=== PATIENT | female | born 1995 | race Caucasian/White ===

== ENCOUNTER 2017-09-30 10:09 | Emergency (ER) | payer BC ==
[2017-09-30] MEDS ORDERED: Ondansetron INJ* 2 MG/ML VIAL IV ONE (11:01)
[2017-09-30] MEDS ORDERED: NS 0.9% 1000 ML* 1,000 ML IV ONE (11:01)
[2017-09-30] MEDS ORDERED: Ketorolac INJ* 30 MG/ML 1 ML VIAL IV PUSH ONE (11:03)
--- NOTE | 2017-09-30 11:41 | ED ---
Headache - HPI Summary HPI Summary: Patient here with headache 1 week. Started as a posterior headache and has been lingering. She has not taken anything for this headache and here today as headache has moved to the top of her head. She also reports developing some dizziness yesterday and went to [facility]. She was diagnosed with vertigo and no treatment. She admits that she was driving to [place] both Monday and returning Monday prior to symptoms starting. On this drive she was going up and down hills with elevation change and noticed that her ears popping from time to time. She denies otalgia, otorrhea and admits her dizziness is "when I look around abruptly, I feel off and a little dizzy". She admits the dizziness was also triggered when lying in bed and rolling from side to side however she was able to settle into a comfortable position. Her headache kept her awake last night. She has associated symptoms of mild photophobia and had a one-time episode of nausea with vomiting last night. Denies fevers, chills, sinus pain or pressure, sore throat, rhinorrhea, sneezing, coughing, chest pain, shortness of breath, abdominal pain, diarrhea, dysuria, urinary frequency, vaginal discharge, skin changes. No recent head or neck injuries. H/o concussion 2 years ago - no residual effects. She came in today for concern of meningitis however admits she's had her meningococcal vaccine and no one has been sick intermediate quarters as she is an RN at [employer]. She admits she's been stressed and studying alot for exams - thinks she's been drinking plenty of water and not too much caffeine. No h/o migraine. Her last menstrual period was one month ago and she denies sexual activity ever. Medical history is significant for anxiety for which she treats with Celexa daily and Xanax as needed; Zyrtec for seasonal allergies, worse in the spring; daily "low dose" antibiotic and VPzel for acne. H/o vasovagal reaction when requiring medical attention specifically with shots and lab draws. She is quite anxious about having any of these procedures done today. Also admits she is just anxious about being here in general. - History Of Current Complaint Chief Complaint: EDGeneral Stated Complaint: POSSIBLE MENENGITIS Time Seen by Provider: 09/30/17 10:27 Hx Obtained From: Patient, Family/Photography Manager - mom via phone - Allergies/Home Medications Allergies/Adverse Reactions: Allergies Allergy/AdvReac Type Severity Reaction Status Date / Time amoxicillin Allergy Severe Hives Verified 09/30/17 10:16 Penicillins Allergy Severe Hives Verified 09/30/17 10:16 PMH/Surg Hx/FS Hx/Imm Hx Previously Healthy: Yes Endocrine/Hematology History: Denies: Hx Anticoagulant Therapy, Hx Blood Disorders, Hx Diabetes, Hx Thyroid Disease, Hx Anemia, Hx Unexplained Bleeding, Autoimmune Disease Cardiovascular History: Denies: Hx Aneurysm, Hx Congenital Heart Disease, Hx Hypertension, Hx Valvular Heart Disease EENT History: Reports: Hx Seasonal Allergies Denies: Hx Deafness, Hx Hearing Problem Psychiatric History: Reports: Hx Anxiety - celexa, xanax - strong fear of medical facilities and procedures - Immunization History Immunizations Up to Date: Yes Infectious Disease History: No Infectious Disease History: Denies: Traveled Outside the [place] in Last 30 Days - Social History Occupation: Student 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 Negative: Blurred Vision, Diplopia, Drainage, Erythema ENT: Negative Negative: Epistaxis, Dental Pain, Sore Throat, Ear Ache, Nasal Discharge Cardiovascular: Negative Negative: Palpitations, Chest Pain Respiratory: Negative Negative: Shortness Of Breath, Cough Positive: Nausea. Negative: Abdominal Pain, Vomiting, Diarrhea Genitourinary: Negative Negative: burning, dysuria, discharge, frequency, flank pain, hematuria, incontinence, pain, urgency Musculoskeletal: Other - neck/shoulders muscles are tense Skin: Negative Positive: Headache. Negative: Weakness, Paresthesia, Numbness, Syncope, Slurred Speech Positive: Anxious All Other Systems Reviewed And Are Negative: Yes Physical Exam Triage Information Reviewed: Yes Vital Signs On Initial Exam: Initial Vitals Temp Pulse Resp BP Pulse Ox 98.8 F 93 16 131/81 100 09/30/17 10:11 09/30/17 10:11 09/30/17 10:11 09/30/17 10:11 09/30/17 10:11 Vital Signs Reviewed: Yes Appearance: Positive: Well-Appearing - tearful and anxious, No Pain Distress, Obese Skin: Positive: Warm, Skin Color Reflects Adequate Perfusion, Dry - no lesions, no erythema over effected areas Head/Face: Positive: Normal Head/Face Inspection. Negative: TMJ Tenderness Eyes: Positive: Normal, EOMI, ANGELA - no photophobia w/ light exam, Conjunctiva Clear. Negative: Conjunctiva Inflammed, Discharge ENT: Positive: Normal ENT inspection, Hearing grossly normal, Pharynx normal, Nasal drainage - clear- from crying, TMs normal, Sinus tenderness - frontal. Negative: TM bulging, TM dull, TM red, Tonsillar swelling, Tonsillar exudate, Trismus, Muffled voice Dental: Negative: Gross Decay/Caries @ Neck: Positive: Supple, Nontender, No Lymphadenopathy Respiratory/Lung Sounds: Positive: Clear to Auscultation, Breath Sounds Present. Negative: Rales, Rhonchi, Wheezes Cardiovascular: Positive: Normal, RRR, Pulses are Symmetrical in both Upper and Lower Extremities, S1, S2. Negative: Murmur, Rub, Leg Edema Left, Leg Edema Right Abdomen Description: Positive: Nontender, No Organomegaly, Soft Bowel Sounds: Positive: Present Musculoskeletal: Positive: Strength/ROM Intact, Pain @ - trapezius mm, rotator cuff mm and rhomboids are TTP,palpation triggers BRYSON Neurological: Positive: Normal, Sensory/Motor Intact, Alert, Oriented to Person Place, Time, CN Intact II-III, Facial Symmetry, Speech Normal, Other - (-) Kernig, (-) Brudzinski. Negative: Jadwin-Casey [place] Test - pt experiences mild dizziness w/ Rt side however not enough to elicit + test and no nystagmus - she has less to no dizziness on Lt but has mild lateral nystagmus (could be baseline?) Psychiatric: Positive: Anxious - tearful at times, anxious but pleasant Diagnostics - Vital Signs Vital Signs Temp Pulse Resp BP Pulse Ox 09/30/17 10:11 98.8 F 93 16 131/81 100 - Laboratory Result Diagrams: 09/30/17 11:25 09/30/17 11:25 Lab Statement: Any lab studies that have been ordered have been reviewed, and results considered in the medical decision making process. Re-Evaluation - Re-Evaluation First Eval Change: Improved - BRYSON, nausea, photophobia and dizziness resolved w/ migraine cocktail. Headache Course/Dx - Course Course Of Treatment: Pt presents w/ worsening BRYSON over the week assc'd sx of photophobia, nausea and vomiting 1 x last night. Clinical suspicion for meningitis is low. Labs, vitals and ECG are unremarkable for acute infectious cause although WBC are elevated to 12 w.o left shift and no fever/barely elevated CRP. A monospot was added to r/o however clinical dx of migraine and pt's sx resolved w/ migraine cocktail. Discussed w/ pt and mom. Reviewed danger s/sx of when to return to ED - otherwise, will f/u w/ [facility]. - Diagnoses Provider Diagnoses: Migraine Discharge - Discharge Plan Condition: Stable Disposition: HOME Patient Education Materials: Migraine Headache (ED) Referrals: [facility] - Zach RAY [Primary Care Provider] - Additional Instructions: Rest, hydrate with water, Gatorade, soups etc.avoid diuretics such as caffeine, alcohol, etc. For headache, he may try warm compresses with gentle neck shoulder back and chest stretches as demonstrated here today. He may also try ibuprofen or Aleve with food as needed for pain. It is suspected that the dizziness sensation was triggered by changes in elevation last week with driving - if this persists or worsens, follow-up with [facility] or return to the emergency department. Implement stress reduction techniques - deep breathing, stretching, exercise, listening to calming music, take breaks from screens, enjoy nature/animals, etc. *If your headache worsens, you develop change in vision, you have syncope, numbness, tingling or weakness, return to the emergency department
[2017-09-30 11:46] LABS: ABS Basophils 0.1 10^3/ul (0-0.2); ABS Eosinophils 0.2 10^3/ul (0-0.6); ABS Lymphocytes 2.6 10^3/ul (1.0-4.8); ABS Monocytes 0.5 10^3/ul (0-0.8); ABS Neutrophils 9.3 10^3/ul (1.5-7.7); ABS Nucleated RBC 0 10^3/ul; Eosinophil % 1.8 % (0-6); Hematocrit 42 % (35-47); Hemoglobin 14.4 g/dl (12.0-16.0); Lymphocyte % 20.6 % (25-47); Mean Corpuscular HGB Conc 34 g/dl (31-36); Mean Corpuscular Hemoglobin 30 pg (27-31); Mean Corpuscular Volume 88 fL (80-97); Mean Platelet Volume 8 um3 (7.4-10.4); Nucleated Red Blood Cells % 0; Platelet Count 315 10^3/ul (150-450); Red Blood Count 4.81 10^6/ul (4.0-5.4); Red Cell Distribution Width 14 % (10.5-15); White Blood Count 12.7 10^3/ul (3.5-10.8)
[2017-09-30 12:06] LABS: EGFR Non-African American 108.5 (>60)
[2017-09-30 12:40] LABS: Urine Appearance Clear; Urine Blood 1+ (Negative); Urine Color Yellow; Urine Ketones Negative (Negative); Urine Protein Negative (Negative); Urine Specific Gravity 1.025 (1.010-1.030); Urine Urobilinogen Negative (Negative)
[2017-09-30 14:37] VITALS: BP 126/68
== END 2017-09-30 14:38 | disposition home or self-care (01) ==
LOC: ED 10:09
DX: G43.909 Migraine, unspecified, not intractable, without status migrainosus (principal); F41.9 Anxiety disorder, unspecified; H53.149 Visual discomfort, unspecified
CPT/HCPCS: 36415; 80053; 81003; 81015; 83605; 83735; 84443; 84702; 85025; 86140; 86308; 87086; 93005; 99283; J1885; J2405